=== PATIENT | male | born 1965 | race Caucasian/White ===

== ENCOUNTER 2023-04-18 21:21 | Emergency (ER) | payer SELFPAY ==
[~2023-04-18] VITALS: Ht 149.9 cm; Wt 52.6 kg
[2023-04-18 22:12] VITALS: BP 162/93
[2023-04-18] MEDS ORDERED: PRED20 PO (22:58)
== END 2023-04-18 23:10 | disposition home or self-care (01) ==
LOC: ER 21:21
DX: T78.1XXA Other adverse food reactions, not elsewhere classified, initial encounter (principal); T78.3XXA Angioneurotic edema, initial encounter; X58.XXXA Exposure to other specified factors, initial encounter; F17.210 Nicotine dependence, cigarettes, uncomplicated; Z88.1 Allergy status to other antibiotic agents; Z88.5 Allergy status to narcotic agent; Z91.013 Allergy to seafood; Z91.048 Other nonmedicinal substance allergy status
CPT/HCPCS: J7512

== ENCOUNTER 2023-06-27 15:56 | Emergency (ER) | payer OTHER ==
[~2023-06-27] VITALS: Ht 149.9 cm; Wt 51.3 kg
[~2023-06-27 15:56] MED LIST: PRED20 PO
[2023-06-27 16:33] LABS: BASOPHILS ABSOLUTE AUTO 0.06 K/mm3 (0.00-0.23); BASOPHILS PERCENT AUTO 1 % (0-2); EOSINOPHILS ABSOLUTE AUTO 0.12 K/mm3 (0.00-0.68); EOSINOPHILS PERCENT AUTO 1 % (0-6); Hematocrit 37.5 % (37.0-53.0); Hemoglobin 13.2 g/dL (13.5-17.5); IMMATURE GRAN ABSOLUTE AUTO 0.02 K/mm3 (0.00-0.10); IMMATURE GRAN PERCENT AUTO 0 % (0-1); LYMPHOCYTES ABSOLUTE AUTO 2.03 K/mm3 (0.84-5.20); LYMPHOCYTES PERCENT AUTO 21 % (21-46); MONOCYTES ABSOLUTE AUTO 0.93 K/mm3 (0.16-1.47); MONOCYTES PERCENT AUTO 10 % (4-13); Mean Corpuscular HGB Conc 35.2 g/dL (31.5-36.5); Mean Corpuscular Volume 97 fL (80-100); NEUTROPHILS ABSOLUTE AUTO 6.46 K/mm3 (1.96-9.15); NEUTROPHILS PERCENT AUTO 67 % (41-73); Platelet Count 335 K/mm3 (150-400); RDW Coefficient Variation 12.4 % (11.7-14.2); RDW Standard Deviation 44.4 fL (35.1-46.3); Red Blood Cell Count 3.88 M/mm3 (4.30-5.90); White Blood Cell Count 9.62 K/mm3 (4.00-11.30)
[2023-06-27 16:50] LABS: Albumin, Blood 4.5 g/dL (3.4-5.0); Bilirubin, Total 0.6 mg/dL (0.1-1.0); Bun/Creatinine Ratio 22.1 (12.0-20.0); Creatinine, Blood 1.72 mg/dL (0.60-1.20); Globulin, Blood 4.3 g/dL (2.2-4.0); Potassium, Blood 3.7 mmol/L (3.5-5.5); Total Protein, Blood 8.8 g/dL (6.4-8.2)
[2023-06-27 17:37] VITALS: BP 139/89
== END 2023-06-27 17:43 | disposition home or self-care (01) ==
LOC: ER 15:56
PROVIDERS: Student in an Organized Health Care Education/Training Program
DX: T67.5XXA Heat exhaustion, unspecified, initial encounter (principal); N17.9 Acute kidney failure, unspecified; Z88.5 Allergy status to narcotic agent; Z88.1 Allergy status to other antibiotic agents; Z88.8 Allergy status to other drugs, medicaments and biological substances; F17.210 Nicotine dependence, cigarettes, uncomplicated
CPT/HCPCS: 80053; 85025; 93005; 93010; 96360; 99284-25; J7030

== ENCOUNTER 2023-06-27 21:41 | Emergency (ER) | payer OTHER ==
[~2023-06-27] VITALS: Ht 149.9 cm; Wt 51.3 kg
[2023-06-27 21:49] VITALS: BP 142/102
== END 2023-06-27 23:51 | disposition home or self-care (01) ==
LOC: ER 21:41
DX: M25.522 Pain in left elbow (principal); F17.210 Nicotine dependence, cigarettes, uncomplicated; Z88.5 Allergy status to narcotic agent; Z91.048 Other nonmedicinal substance allergy status; W01.0XXA Fall on same level from slipping, tripping and stumbling without subsequent striking against object, initial encounter
CPT/HCPCS: 29105; 73070; 99283-25